=== PATIENT | male | born 1960 | race Two or more races ===

== ENCOUNTER 2017-05-01 12:57 | Emergency (ER) | payer SELFPAY ==
[2017-05-01 13:05] VITALS: BP 141/89; BMI 29.2
[2017-05-01] MEDS ORDERED: NS 1000 ML 1,000 ML IV ONE (13:46)
--- NOTE | 2017-05-01 13:49 | DR.GENAD ---
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 DENIES FEVER OR DYSURIA. NO URI SYMTOMS. - Complaint/Symptoms Chief Complaint Doctors Comments: GENERALIZE BODY CRAMPS. Chief Complaint:: CRAMPING ALL IN HIS BODY. 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 - Nurses notes reviewed Nurses Notes Review: Yes - Source History Provided: Patient, Significant Other - Mode of Arrival Mode of Arrival: Ambulatory - Timing Onset of Chief Complaint: 04/30/17 Came on: Suddenly - Duration Duration: Constant Duration: Days - Severity Severity: Moderate PMH - PMH Past Medical History: No Past Surgical History: No Surgical History: Unknown - Family History History of Family Medical Conditions: No - Social History Does any household member use tobacco: No Alcohol Use: None Do you use any recreational Drugs:: No Lives With: Family, Significant Other Lives Where: Home - infectious screening In the last 2 months have you had wt loss of >10#?: NO Have you had fever, night sweats or hemotysis?: No Have you traveled outside the country in the last 6 months?: No Isolation: Standard ROS - Review of Systems Constitutional: Weakness, Fatigue Eyes: No Symptoms Reported ENTM: No Symptoms Reported. negative: Ear Pain, Nose Discharge, Nose Congestion , Throat Pain Respiratoy: No Symptoms Reported. negative: Productive Cough, Non-Productive Cough, Short of Breath, Wheezing Cardiovascular: No Symptoms Reported. negative: Chest Pain, Edema, Palpitations Gastrointestinal/Abdominal: No Symptoms Reported. negative: Abdominal Pain, Nausea, Vomiting Genitourinary: No Symptoms Reported. negative: Dysuria, Frequency, Hematuria Neurological: Weakness. negative: Headache, Dizziness Musculoskeletal: Muscle Pain Integumentary: No Symptoms Reported Hematologic/Lymphatic: No Symptoms Reported Endocrine: No Symptoms Reported All Other Systems: Reviewed and Negative PE - Vital Signs Vitals: Temperature 98.2 F Pulse Rate 94 Respiratory Rate 20 Blood Pressure 141/89 O2 Sat by Pulse Oximetry 96 - General Limitations: No Limitations General Appearance: Alert - Head Head Exam: Normal Inspection - Eyes Eye exam: Normal Appearance - ENT ENT Exam: Normal External Ear Exam External Ear Exam: Normal External Inspection TM/Canal Exam: Bilateral Normal Nose Exam: Normal Nose Exam Mouth Exam: Normal Inspection Throat Exam: Normal Inspection - Neck Neck Exam: Trachea Midline - Chest Chest Inspection: Symmetric Chest Wall Rise - Respiratory Respiratory Exam: Normal Lung Sounds Bilat Respiratory Exam: Bilateral Clear to Auscultation - Cardiovascular Cardiovascular Exam: Regular Rate, Normal Rhythm, Normal Heart Sounds - Abdominal Exam Abdominal Exam: Normal Bowel Sounds, Soft. negative: Tenderness - Extremities Extremities Exam: Normal Inspection - Back Back Exam: Normal Inspection - Neurologic Neurological Exam: Alert, Oriented X3 - Psychiatric Psychiatric Exam: Normal Affect, Normal Mood - Skin Skin Exam: Normal Color [facility] - Additional Information Additional Information Obtained From: Family - Differential Diagnosis Differential Diagnosis: GENERALIZE MYALGIA, UTI, DEHYDRATION Course - Treatment Treatment: SEE ORDERS. - Education/Counseling Education/Counseling: Patient, Family, Education Educated On: Treatment, Diagnosis, Needs for Follow Up ROR - Labs Reviewed Result Diagrams: 05/01/17 14:00 05/01/17 14:00 Laboratory: WBC 10.4 X10^3/uL (3.6-10.0) H 05/01/17 14:00 RBC 4.91 X10^6/uL (4.7-6.0) 05/01/17 14:00 Hgb 15.0 g/dL (13.5-18.0) 05/01/17 14:00 Hct 42.4 % (42.0-54.0) 05/01/17 14:00 MCV 86.4 fL (80.0-100.0) 05/01/17 14:00 MCH 30.5 pg (27.0-34.0) 05/01/17 14:00 MCHC 35.3 g/dL (33.0-35.0) H 05/01/17 14:00 RDW 13.9 % (11.6-16.5) 05/01/17 14:00 Plt Count 259 X10^3/uL (150.0-450.0) 05/01/17 14:00 MPV 7.5 fL (7.4-11.0) 05/01/17 14:00 Neut % 64.3 % (42.0-75.0) 05/01/17 14:00 Lymph % 26.4 % (21.0-51.0) 05/01/17 14:00 [place] % 7.3 % (0.0-13.0) 05/01/17 14:00 Eos % 1.5 % (0.9-2.9) 05/01/17 14:00 Baso % 0.5 % (0.2-1.0) 05/01/17 14:00 Neut # 6.7 x10^3/uL (2.2-4.8) H 05/01/17 14:00 Lymph # 2.7 X10^3/uL (1.3-2.9) 05/01/17 14:00 [place] # 0.8 x10^3/uL (0.3-0.8) 05/01/17 14:00 Eos # 0.2 x10^3/uL (0.0-0.2) 05/01/17 14:00 Baso # 0.0 X10^3/uL (0.0-0.1) 05/01/17 14:00 Absolute Nucleated RBC 0.0 /100WBC 05/01/17 14:00 Sodium 138 mmol/L (136-145) 05/01/17 14:00 Corrected Sodium TNP 05/01/17 14:00 Potassium 4.1 mmol/L (3.5-5.1) 05/01/17 14:00 Chloride 103 mmol/L (98-107) 05/01/17 14:00 Carbon Dioxide 28.5 mmol/L (21-32) 05/01/17 14:00 BUN 25 mg/dL (7-18) H 05/01/17 14:00 Creatinine 1.27 mg/dL (0.70-1.30) 05/01/17 14:00 Est GFR (MDRD) Af Amer > 60 (>60) 05/01/17 14:00 Est GFR (MDRD) Non-Af > 60 (>60) 05/01/17 14:00 Glucose 100 mg/dL (65-99) H 05/01/17 14:00 Calcium 9.1 mg/dL (8.5-10.1) 05/01/17 14:00 Corrected Calcium TNP 05/01/17 14:00 Total Bilirubin 0.60 mg/dL (0.2-1.0) 05/01/17 14:00 AST 78 Units/L (15-37) H 05/01/17 14:00 ALT 150 Units/L (12-78) H 05/01/17 14:00 Alkaline Phosphatase 94 Units/L (46-116) 05/01/17 14:00 Total Protein 8.3 g/dL (6.4-8.2) H 05/01/17 14:00 Albumin 4.3 g/dL (3.4-5.0) 05/01/17 14:00 Globulin 4.0 g/dL (2.5-4.5) 05/01/17 14:00 Albumin/Globulin Ratio 1.1 Ratio (1.1-2.1) 05/01/17 14:00 Specimen Type Clean catch urine 05/01/17 14:09 Urine Color Dark yellow (YELLOW) 05/01/17 14:09 Urine Appearance Clear (CLEAR) 05/01/17 14:09 Urine pH 5.0 (5.0 - 8.0) 05/01/17 14:09 Ur Specific [place] 1.025 (1.000-1.030) 05/01/17 14:09 Urine Protein 2+ (NEGATIVE) 05/01/17 14:09 Urine Glucose (UA) Negative (NEGATIVE) 05/01/17 14:09 Urine Ketones 1+ (NEGATIVE) 05/01/17 14:09 Urine Occult Blood 1+ (NEGATIVE) 05/01/17 14:09 Urine Nitrite Negative (NEGATIVE) 05/01/17 14:09 Urine Bilirubin Negative (NEGATIVE) 05/01/17 14:09 Urine Urobilinogen 1+ (NORMAL) 05/01/17 14:09 Ur Leukocyte Esterase 1+ (NEGATIVE) 05/01/17 14:09 Urine RBC 3-5 /HPF (NEGATIVE) 05/01/17 14:09 Urine WBC 4-5 /HPF (NEGATIVE) 05/01/17 14:09 Ur Squamous Epith Cells Few /HPF (NEGATIVE) 05/01/17 14:09 Amorphous Sediment Trace /HPF (NEGATIVE) 05/01/17 14:09 Urine Bacteria 1+ /HPF (NEGATIVE) 05/01/17 14:09 Hyaline Casts Few /LPF (NEGATIVE) 05/01/17 14:09 Urine Mucus Moderate /HPF (NEGATIVE) 05/01/17 14:09 Ur Culture Indicated? No/not indicated 05/01/17 14:09 - Diagnosis Discharge Problem: Myalgia, Dehydration Heat cramp Qualifiers: Encounter type: initial encounter Qualified Code(s): T67.2XXA - Heat cramp, initial encounter - Discharge Plan Disposition: HOME, SELF-CARE Condition: Stable Prescriptions: Ibuprofen [MOTRIN TAB 600 MG *] 600 mg PO TID PRN #20 tab PRN Reason: Pain/Inflammation Ranitidine HCl [ZANTAC TAB 150 MG *] 150 mg PO BID #20 tab - Follow ups/Referrals Follow ups/Referrals: NFD,None [Primary Care Provider] - 3 days - Instructions Instructions: Rehydration, Adult, Heat Illness-SportsMed Additional Instructions: RETURN TO ED IF WORSE.
[2017-05-01] MEDS ORDERED: NS 1000 ML 1,000 ML ONE (14:01)
[2017-05-01 14:11] LABS: BASOPHILS % (AUTO) 0.5 % (0.2-1.0); EOSINOPHILS # (AUTO) 0.2 x10^3/uL (0.0-0.2); EOSINOPHILS % (AUTO) 1.5 % (0.9-2.9); HEMATOCRIT 42.4 % (42.0-54.0); LYMPHOCYTES # (AUTO) 2.7 X10^3/uL (1.3-2.9); LYMPHOCYTES % (AUTO) 26.4 % (21.0-51.0); MEAN CORPUSCULAR HEMOGLOBIN 30.5 pg (27.0-34.0); MEAN CORPUSCULAR HGB CONC 35.3 g/dL (33.0-35.0); MEAN CORPUSCULAR VOLUME 86.4 fL (80.0-100.0); MEAN PLATELET VOLUME 7.5 fL (7.4-11.0); MONOCYTES # (AUTO) 0.8 x10^3/uL (0.3-0.8); MONOCYTES % (AUTO) 7.3 % (0.0-13.0); NEUTROPHILS # (AUTO) 6.7 x10^3/uL (2.2-4.8); NEUTROPHILS % (AUTO) 64.3 % (42.0-75.0); PLATELET COUNT 259 X10^3/uL (150.0-450.0); RED BLOOD COUNT 4.91 X10^6/uL (4.7-6.0); RED CELL DISTRIBUTION WIDTH 13.9 % (11.6-16.5); WHITE BLOOD COUNT 10.4 X10^3/uL (3.6-10.0)
[2017-05-01 14:29] LABS: APPEARANCE,URINE CLEAR (CLEAR); BACTERIA,URINE 1+ /HPF (NEGATIVE); BILIRUBIN,URINE NEGATIVE (NEGATIVE); BLOOD/HEMOGLOBIN,URINE 1+ (NEGATIVE); COLOR,URINE DARK YELLOW (YELLOW); GLUCOSE, URINE NEGATIVE (NEGATIVE); KETONES,URINE 1+ (NEGATIVE); LEUKOCYTE ESTERASE ,URINE 1+ (NEGATIVE); NITRITES,URINE NEGATIVE (NEGATIVE); PROTEIN,URINE 2+ (NEGATIVE); SQUAMOUS EPITHELIAL CELL,UR FEW /HPF (NEGATIVE); UROBILINOGEN,URINE 1+ (NORMAL)
[2017-05-01 14:30] LABS: AMORPHOUS SEDIMENT,UR TRACE /HPF (NEGATIVE); HYALINE CASTS, URINE FEW /LPF (NEGATIVE); MUCUS,URINE MODERATE /HPF (NEGATIVE)
[2017-05-01 14:33] LABS: ALANINE AMINOTRANSFERASE 150 Units/L (12-78); ALBUMIN 4.3 g/dL (3.4-5.0); ALKALINE PHOSPHATASE 94 Units/L (46-116); ASPARTATE AMINO TRANSFERASE 78 Units/L (15-37); BLOOD UREA NITROGEN 25 mg/dL (7-18); CALCIUM 9.1 mg/dL (8.5-10.1); CARBON DIOXIDE 28.5 mmol/L (21-32); CHLORIDE 103 mmol/L (98-107); CREATININE 1.27 mg/dL (0.70-1.30); GLUCOSE 100 mg/dL (65-99); SODIUM 138 mmol/L (136-145); TOTAL PROTEIN 8.3 g/dL (6.4-8.2); eGFR BLACK RACES > 60 (>60); eGFR NON BLACK RACES > 60 (>60)
[2017-05-01] MEDS ORDERED: TORADOL 30 MG VIAL IVP ONE (15:33)
[2017-05-01] MEDS ORDERED: ATIVAN INJ 2 MG VIAL IVP ONE (15:39)
[2017-05-01] MEDS ORDERED: ATIVAN INJ 2 MG VIAL ONE (16:09)
[2017-05-01] MEDS ORDERED: TORADOL 30 MG VIAL ONE (16:09)
== END 2017-05-01 16:36 | disposition home or self-care (01) ==
LOC: ER 13:11
DX: E86.0 Dehydration (principal); T67.2XXA Heat cramp, initial encounter; M79.1 Myalgia
CPT/HCPCS: 36415; 80053; 81001; 85025; 96365; 96374; 96375; 99282; 99283; A4222; J1885; J2060

== ENCOUNTER 2017-07-20 08:40 | Observation (INO) | payer SELFPAY ==
[2017-07-20 08:51] VITALS: BMI 27.3
[2017-07-20] MEDS ORDERED: TORADOL 60 MG VIAL IM ONE (09:14)
--- NOTE | 2017-07-20 09:19 | DR.GENAD ---
HPI - PCP Primary Care Physician: none - Complaint/Symptoms Chief Complaint Doctors Comments: Patient is complaining of hurting when he urinates with left side and lower back pain for the past 24 hours with fever last night. States he has been having nocturia but denies hematuria. States the pain is 8 of 10 and the pain is worst when he moves or bends. States he has been doing a lot of lifting in the [place]. He has been having dizziness, frontal headache and cramps in his legs. He denies syncope or any recent trauma. States he has reading glassed but has not gone to a doctor to have his eyes checked. Chief Complaint:: "hurting when i pee,I had a fever lastnight, and my head is hurting." - Nurses notes reviewed Nurses Notes Review: Yes - Source History Provided: Patient - Mode of Arrival Mode of Arrival: Ambulatory - Timing Onset of Chief Complaint: 07/19/17 Came on: Gradually - Duration Duration: Constant How lon Duration: Days - Location Location: left lower back back and lower abdominal pain - Severity Severity: Moderate - Modifying Factors Worsens:: movement Improves:: nothing PMH - PMH Past Medical History: No Past Surgical History: No Surgical History: Unknown - Family History History of Family Medical Conditions: No - Social History Does patient currently use any type of tobacco product: No Have you used tobacco products in the last 12 months: No Type of Tobacco Use: None Does any household member use tobacco: No Alcohol Use: None Do you use any recreational Drugs:: No Lives With: Family Lives Where: Home - infectious screening In the last 2 months have you had wt loss of >10#?: NO Have you had fever, night sweats or hemotysis?: No Have you traveled outside the country in the last 6 months?: No Isolation: Standard ROS - Review of Systems Constitutional: No Symptoms Reported Eyes: No Symptoms Reported, Blurred Vision. negative: See HPI, Eye Pain, Tearing, Discharge, Photophobia, Diplopia, Other ENTM: Nose Discharge, Nose Congestion. negative: No Symptoms Reported, See HPI , Ear Pain, Ear Discharge, Pulling on Ears, Hearing Loss, Nose Pain, Epistaxis, Mouth Pain, Mouth Swelling, Loose Teeth, Drooling, Throat Pain, Throat Swelling , Ear Foreign Body Respiratoy: No Symptoms Reported. negative: See HPI, Productive Cough, Non- Productive Cough, Moist Cough, Dry Cough, Hacking Cough, Barking Cough, Brassy Cough, Orthopnea, Short of Breath, Stridor, Wheezing, Hemoptysis, Other Cardiovascular: No Symptoms Reported. negative: See HPI, Chest Pain, Edema, Palpitations, Syncope, Cyanosis, Skin Mottling, Other Gastrointestinal/Abdominal: No Symptoms Reported, Abdominal Pain. negative: See HPI, Constipation, Diarrhea, Nausea, Vomiting, Food Intolerance, Other Genitourinary: No Symptoms Reported, Dysuria, Frequency, Pain. negative: See HPI, Discharge, Hematuria, Bleeding, Other Neurological: No Symptoms Reported, Headache. negative: See HPI, Anxiety, Depressed, Emotional Problems, Numbness, Paresthesia, Pre-existing Deficit, Seizure, Tingling, Tremors, Weakness, Dizziness, Problems Walking, Speech Problem, Other Musculoskeletal: No Symptoms Reported, Back Pain, Back Integumentary: No Symptoms Reported. negative: See HPI, Change in Color, Change in Hair/Nails, Dryness, Lesions, Lumps, Rash, Itching, Wound, Bruises, Juandice, Other Hematologic/Lymphatic: No Symptoms Reported. negative: See HPI, Anemia, Blood Clots, Easy Bleeding, Easy Bruising, Swollen Glands, Lymphadenopathy, Other Endocrine: No Symptoms Reported Psychiatric: No Symptoms Reported. negative: See HPI, Anxiety, Depression, Hallucinations, Excessive crying, Suicidal, Other PE - Vital Signs Vitals: Temperature 98.4 F Pulse Rate 93 Respiratory Rate 18 Blood Pressure 135/83 O2 Sat by Pulse Oximetry 96 - General Limitations: No Limitations General Appearance: Alert, In Distress (moderate) - Head Head Exam: Normal Inspection, Atraumatic, Normocephalic - Eyes Eye exam: Normal Appearance, PERRL, EOMI - ENT ENT Exam: Normal Exam, Normal Oropharynx, Normal External Ear Exam, Mucous Membranes Moist, TM's Normal Bilaterally External Ear Exam: Normal External Inspection TM/Canal Exam: Bilateral Normal Nose Exam: Normal Nose Exam Mouth Exam: Normal Inspection Throat Exam: Normal Inspection - Neck Neck Exam: Normal Inspection, Full ROM, Trachea Midline. negative: Tenderness, Meningismus, Lymphadenopathy, Thyromegaly, Other - Chest Chest Inspection: Normal Inspection, Symmetric Chest Wall Rise - Respiratory Respiratory Exam: Normal Lung Sounds Bilat Respiratory Exam: Bilateral Clear to Auscultation - Cardiovascular Cardiovascular Exam: Regular Rate, Normal Rhythm, Normal Heart Sounds - Abdominal Exam Abdominal Exam: Normal Inspection, Normal Bowel Sounds, Soft, Tenderness ( suprapubic tenderness), Rebound Abdominal Tenderness: RLQ, LLQ, Suprapubic, Moderate - Extremities Extremities Exam: Normal Inspection, Full ROM, Normal Capillary Refill. negative: Tenderness, Edema, Joint Swelling, Calf Tenderness, Other - Back Back Exam: Normal Inspection, Full ROM, Tenderness, (L) CVA Tenderness, Paraspinal Tenderness. negative: (R) Sciatic Notch Tenderness, (L) Sciatic Notch Tendern, (R) Straight Leg Raise, (L) Straight Leg Raise - Neurologic Neurological Exam: Alert, Oriented X3, CN II-XII Intact, Normal Gait, Reflexes Normal - Psychiatric Psychiatric Exam: Normal Affect, Normal Mood. negative: Depressed, Agitated, Anxious, Flat Affect, Manic, Homicidal Ideation, Suicidal Ideation, Other - Skin Skin Exam: Warm, Dry, Intact, Normal Color. negative: Rash, Cyanosis, Diaphoresis, Erythema, Pallor, Mottled, Other Course - Consultation Called: 13:09 Call Returned: 13:09 (Dr. Smith to admit) - Education/Counseling Education/Counseling: Family Educated On: Treatment, Diagnosis, Needs for Follow Up ROR - Labs Reviewed Laboratory Results Reviewed?: Yes (all labs and x-ray results reviewed and discuussed with patient) Result Diagrams: 07/20/17 09:26 07/20/17 09:26 Laboratory: WBC 16.1 X10^3/uL (3.6-10.0) H 07/20/17 09:26 RBC 4.75 X10^6/uL (4.7-6.0) 07/20/17 09:26 Hgb 14.4 g/dL (13.5-18.0) 07/20/17 09:26 Hct 41.8 % (42.0-54.0) L 07/20/17 09:26 MCV 88.0 fL (80.0-100.0) 07/20/17 09:26 MCH 30.3 pg (27.0-34.0) 07/20/17 09: MCHC 34.5 g/dL (33.0-35.0) 07/20/17 09: RDW 13.5 % (11.6-16.5) 07/20/17 09:26 Plt Count 204 X10^3/uL (150.0-450.0) 07/20/17 09:26 MPV 7.8 fL (7.4-11.0) 07/20/17 09:26 Neut % 82.6 % (42.0-75.0) H 07/20/17 09:26 Lymph % 10.8 % (21.0-51.0) L 07/20/17 09:26 [facility] % 5.5 % (0.0-13.0) 07/20/17 09:26 Eos % 0.9 % (0.9-2.9) 07/20/17 09:26 Baso % 0.2 % (0.2-1.0) 07/20/17 09:26 Neut # 13.3 x10^3/uL (2.2-4.8) H 07/20/17 09:26 Lymph # 1.7 X10^3/uL (1.3-2.9) 07/20/17 09:26 [facility] # 0.9 x10^3/uL (0.3-0.8) H 07/20/17 09:26 Eos # 0.2 x10^3/uL (0.0-0.2) 07/20/17 09:26 Baso # 0.0 X10^3/uL (0.0-0.1) 07/20/17 09:26 Absolute Nucleated RBC 0.0 /100WBC 07/20/17 09:26 Sodium 139 mmol/L (136-145) 07/20/17 09:26 Corrected Sodium 139 mmol/L (136-145) 07/20/17 09:26 Potassium 3.7 mmol/L (3.5-5.1) 07/20/17 09:26 Chloride 103 mmol/L (98-107) 07/20/17 09:26 Carbon Dioxide 27.7 mmol/L (21-32) 07/20/17 09:26 BUN 18 mg/dL (7-18) 07/20/17 09:26 Creatinine 0.89 mg/dL (0.70-1.30) 07/20/17 09:26 Est GFR (MDRD) Af Amer > 60 (>60) 07/20/17 09:26 Est GFR (MDRD) Non-Af > 60 (>60) 07/20/17 09:26 Glucose 114 mg/dL (65-99) H 07/20/17 09:26 Calcium 9.3 mg/dL (8.5-10.1) 07/20/17 09:26 Corrected Calcium TNP 07/20/17 09:26 Total Bilirubin 1.40 mg/dL (0.2-1.0) H 07/20/17 09:26 AST 116 Units/L (15-37) H 07/20/17 09:26 ALT 178 Units/L (12-78) H 07/20/17 09:26 Alkaline Phosphatase 141 Units/L (46-116) H 07/20/17 09:26 Total Protein 8.0 g/dL (6.4-8.2) 07/20/17 09:26 Albumin 4.0 g/dL (3.4-5.0) 07/20/17 09:26 Globulin 4.0 g/dL (2.5-4.5) 07/20/17 09:26 Albumin/Globulin Ratio 1.0 Ratio (1.1-2.1) L 07/20/17 09:26 Amylase 60 Units/L (25-115) 07/20/17 09:26 Lipase 235 Units/L (73-393) 07/20/17 09:26 Specimen Type Clean catch urine 07/20/17 09:09 Urine Color [place] (YELLOW) 07/20/17 09:09 Urine Appearance Cloudy (CLEAR) 07/20/17 09:09 Urine pH 6.0 (5.0 - 8.0) 07/20/17 09:09 Ur Specific [place] 1.020 (1.000-1.030) 07/20/17 09:09 Urine Protein 3+ (NEGATIVE) 07/20/17 09:09 Urine Glucose (UA) Negative (NEGATIVE) 07/20/17 09:09 Urine Ketones Negative (NEGATIVE) 07/20/17 09:09 Urine Occult Blood 5+ (NEGATIVE) 07/20/17 09:09 Urine Nitrite Positive (NEGATIVE) 07/20/17 09:09 Urine Bilirubin Negative (NEGATIVE) 07/20/17 09:09 Urine Urobilinogen 1+ (NORMAL) 07/20/17 09:09 Ur Leukocyte Esterase 3+ (NEGATIVE) 07/20/17 09:09 Urine RBC Tntc /HPF (NEGATIVE) 07/20/17 09:09 Urine WBC Tntc /HPF (NEGATIVE) 07/20/17 09:09 Ur Squamous Epith Cells Few /HPF (NEGATIVE) 07/20/17 09:09 Urine Bacteria 2+ /HPF (NEGATIVE) 07/20/17 09:09 Urine Yeast Few /HPF (NEGATIVE) 07/20/17 09:09 Ur Culture Indicated? Yes/culture set up 07/20/17 09:09 - XRAY XRAY Interpreted by: Radiologist (CT abdomen: Findings involving appendix is retocecal. Nonspecific bilateral perinephric stranding) - Diagnosis Discharge Problem: urinary tract infection r/o pyelonephrit, abdominal pain r/o appendicitis, Abnormal liver enzymes, Diverticulosis of colon - Discharge Plan Disposition: ADMITTED INPATIENT Condition: Stable - Follow ups/Referrals Follow ups/Referrals: NFD,None [Primary Care Provider] - 3 days - Instructions
[2017-07-20] MEDS ORDERED: TORADOL 60 MG VIAL ONE (09:22)
[2017-07-20 09:40] LABS: BILIRUBIN,URINE NEGATIVE (NEGATIVE); BLOOD/HEMOGLOBIN,URINE 5+ (NEGATIVE); GLUCOSE, URINE NEGATIVE (NEGATIVE); KETONES,URINE NEGATIVE (NEGATIVE); LEUKOCYTE ESTERASE ,URINE 3+ (NEGATIVE); NITRITES,URINE POSITIVE (NEGATIVE); PROTEIN,URINE 3+ (NEGATIVE); UROBILINOGEN,URINE 1+ (NORMAL)
[2017-07-20 09:42] LABS: APPEARANCE,URINE CLOUDY (CLEAR); COLOR,URINE AMBER (YELLOW)
[2017-07-20 09:44] LABS: BASOPHILS % (AUTO) 0.2 % (0.2-1.0); EOSINOPHILS # (AUTO) 0.2 x10^3/uL (0.0-0.2); EOSINOPHILS % (AUTO) 0.9 % (0.9-2.9); HEMATOCRIT 41.8 % (42.0-54.0); HEMOGLOBIN 14.4 g/dL (13.5-18.0); LYMPHOCYTES # (AUTO) 1.7 X10^3/uL (1.3-2.9); LYMPHOCYTES % (AUTO) 10.8 % (21.0-51.0); MEAN CORPUSCULAR HEMOGLOBIN 30.3 pg (27.0-34.0); MEAN CORPUSCULAR HGB CONC 34.5 g/dL (33.0-35.0); MEAN PLATELET VOLUME 7.8 fL (7.4-11.0); MONOCYTES # (AUTO) 0.9 x10^3/uL (0.3-0.8); MONOCYTES % (AUTO) 5.5 % (0.0-13.0); NEUTROPHILS # (AUTO) 13.3 x10^3/uL (2.2-4.8); NEUTROPHILS % (AUTO) 82.6 % (42.0-75.0); PLATELET COUNT 204 X10^3/uL (150.0-450.0); RED BLOOD COUNT 4.75 X10^6/uL (4.7-6.0); RED CELL DISTRIBUTION WIDTH 13.5 % (11.6-16.5); WHITE BLOOD COUNT 16.1 X10^3/uL (3.6-10.0)
[2017-07-20 09:46] LABS: BACTERIA,URINE 2+ /HPF (NEGATIVE); RBC,URINE TNTC /HPF (NEGATIVE); SQUAMOUS EPITHELIAL CELL,UR FEW /HPF (NEGATIVE); YEAST,URINE FEW /HPF (NEGATIVE)
[2017-07-20 09:49] LABS: ALANINE AMINOTRANSFERASE 178 Units/L (12-78); ALKALINE PHOSPHATASE 141 Units/L (46-116); AMYLASE 60 Units/L (25-115); ASPARTATE AMINO TRANSFERASE 116 Units/L (15-37); BLOOD UREA NITROGEN 18 mg/dL (7-18); CALCIUM 9.3 mg/dL (8.5-10.1); CARBON DIOXIDE 27.7 mmol/L (21-32); CHLORIDE 103 mmol/L (98-107); COR NA(FOR HYPERGLY) 139 mmol/L (136-145); CREATININE 0.89 mg/dL (0.70-1.30); LIPASE 235 Units/L (73-393); SODIUM 139 mmol/L (136-145); eGFR BLACK RACES > 60 (>60); eGFR NON BLACK RACES > 60 (>60)
[2017-07-20] MEDS ORDERED: ROCEPHIN VIAL 1 GM 1 GM in NS 50 ML IV + SPIKE MINIBAG* 50 ML IV ONE ×2 (09:56→13:13)
[2017-07-20] MEDS ORDERED: NS 1000 ML 1,000 ML IV ONE (09:56)
[2017-07-20] MEDS ORDERED: LEVAQUIN PREMIX IV 500 MG 500 MG/100 ML BAG IV ONE ×3 (09:57→13:11)
[2017-07-20] MEDS ORDERED: NS 1000 ML 1,000 ML ONE (10:07)
[2017-07-20] MEDS ORDERED: NS 50 ML IV 50 ML IV ONE ×2 (10:07→22:01)
[2017-07-20] MEDS ORDERED: ROCEPHIN VIAL 1 GM ONE ×2 (10:08→22:01)
--- NOTE | 2017-07-20 10:16 | CT ---
HISTORY: Fever and right flank pain Study: CT abdomen and pelvis without contrast Comparison: None Technique: Multiple axial, coronal, and sagittal CT images of the abdomen and pelvis were reviewed wi thout contrast. AEC was utilized. Findings: There is a small mesenteric fat containing umbilical hernia. The lung bases are clear. There is no pn eumoperitoneum. No significant free fluid is identified. There is thoracolumbar spondylosis. The aneta d organs are unremarkable in their noncontrast appearance. There is nonspecific bilateral perinephric stranding for which correlation with urinalysis is recommended given the clinical history. There is no nephrolithiasis, ureterolithiasis, or hydronephrosis. There is sigmoid diverticulosis without terence colonic inflammation. The appendix is retrocecal with air noted in its proximal and distal portions w hich typically indicates a normal appearance, but the appendix is mildly dilated measuring 7-8 mm in diameter with the midportions of the appendix containing high-density material representing either ch ronic inspissated barium from previous contrasted imaging versus small appendicolith. It is difficult to discern whether there is significant surrounding inflammation or wall thickening given the adjace nt perinephric stranding, motion artifact through this level of the abdomen, and given the lack of co ntrast. In the setting of fever and leukocytosis, mild early acute appendicitis cannot be entirely ex cluded. Surgical consultation and close clinical correlation and follow-up are recommended. The bladd er is decompressed. IMPRESSION: No definite acute finding within the abdomen or pelvis. However, there are equivocal indeterminate fi ndings involving the appendix which is retrocecal as described in detail above. Nonspecific mild bilateral perinephric stranding. Correlate with urinalysis. Uncomplicated diverticulosis. Reported By:
[2017-07-20] MEDS ORDERED: DILAUDID INJ IVP PRN (13:11)
[2017-07-20] MEDS ORDERED: PEPCID 20 MG IV PREMIX* 20 MG/50 ML BAG IV PRN (13:11)
[2017-07-20] MEDS ORDERED: TYLENOL 325 MG TAB PO PRN (13:11)
[2017-07-20] MEDS ORDERED: ZOFRAN INJ 4 MG VIAL IVP PRN (13:11)
[2017-07-20] MEDS: LEVAQUIN PREMIX IV 500 MG 500 MG/100 ML BAG IV SCH (21:38)
[2017-07-20] MEDS: NS 1000 ML 1,000 ML IV SCH (21:39)
[2017-07-20] MEDS: ROCEPHIN VIAL 1 GM 1 GM in NS 50 ML IV + SPIKE MINIBAG* 50 ML IV SCH (22:43)
[2017-07-20] MEDS: TORADOL 30 MG VIAL IVP PRN (22:43)
[2017-07-21 05:14] LABS: BASOPHILS # (AUTO) 0.1 X10^3/uL (0.0-0.1); BASOPHILS % (AUTO) 0.5 % (0.2-1.0); EOSINOPHILS # (AUTO) 0.4 x10^3/uL (0.0-0.2); EOSINOPHILS % (AUTO) 2.6 % (0.9-2.9); HEMOGLOBIN 12.8 g/dL (13.5-18.0); LYMPHOCYTES # (AUTO) 1.9 X10^3/uL (1.3-2.9); LYMPHOCYTES % (AUTO) 14.1 % (21.0-51.0); MEAN CORPUSCULAR HEMOGLOBIN 30.6 pg (27.0-34.0); MEAN CORPUSCULAR HGB CONC 34.5 g/dL (33.0-35.0); MEAN CORPUSCULAR VOLUME 88.7 fL (80.0-100.0); MONOCYTES # (AUTO) 0.9 x10^3/uL (0.3-0.8); MONOCYTES % (AUTO) 6.5 % (0.0-13.0); NEUTROPHILS # (AUTO) 10.5 x10^3/uL (2.2-4.8); NEUTROPHILS % (AUTO) 76.3 % (42.0-75.0); PLATELET COUNT 174 X10^3/uL (150.0-450.0); RED BLOOD COUNT 4.18 X10^6/uL (4.7-6.0); RED CELL DISTRIBUTION WIDTH 13.3 % (11.6-16.5); WHITE BLOOD COUNT 13.7 X10^3/uL (3.6-10.0)
[2017-07-21 05:26] LABS: BLOOD UREA NITROGEN 14 mg/dL (7-18); CALCIUM 8.4 mg/dL (8.5-10.1); CARBON DIOXIDE 25.7 mmol/L (21-32); CHLORIDE 105 mmol/L (98-107); CREATININE 0.86 mg/dL (0.70-1.30); SODIUM 139 mmol/L (136-145); eGFR BLACK RACES > 60 (>60); eGFR NON BLACK RACES > 60 (>60)
[2017-07-21] MEDS: NS 1000 ML 1,000 ML IV SCH (06:33)
--- NOTE | 2017-07-21 10:39 | DR.H&P ---
H&P - History & Physical for Day of: H&P Date: 07/20/17 - Chief Complaint Chief Complaint: dysuria, abdominal pain - Allergies Allergies/Adverse Reactions: Allergies Allergy/AdvReac Type Severity Reaction Status Date / Time No Known Drug Allergies Allergy Verified 05/01/17 13:05 - History of Present Illness History of Present Illness: is a 57 year old male who presented to the emergency room with complaints of painful urination, fever, and back pain, and abdominal pain. Patient reports that symptoms started approximately 24 hours prior to arrival to the ER. He describes abdominal pain as diffuse, and back pain to the lower back around to the left flank. He denies hematuria. Patient reports that pain is 8/10 and is worse when he moves or bends. Associated symptoms are headache, dizziness, nasal congestion and discharge, urinary frequency, and cramps to bilateral legs. He denies syncope or recent trauma. On arrival to the emergency room, vital signs were 98.4-93-18- 96%-135/83. Abnormal lab values include the following: wbc 16.1, hct 41.8, glucose 114, total bili 1.40, ast 116, alt 178, alk phos 141, a/g ratio 1.0. Urinalysis reported wbc TNTC, rbc TNTC, leukocytes 3+, bacteria 2+, nitrites positive, occult blood 5+, protein 3+. A CT of the abdomen/pelvis was obtained. Abnormal lab values include the following: no definite acute finding within the abdomen or pelvis. However, there are equivocal indeterminate findings involving the appendix which is retrocecal. Non specific mild bilateral perinephric stranding. Uncomplicated diverticulosis. Patient was given rocephin and levaquin in the ER and a normal saline bolus. He was also given toradol 60mg im x 1 dose in the ER with no improvement in pain noted. We planned to admit the patient for further evaluation and treatment of UTI and abdominal pain. We will consult with , general surgery to evaluate for acute appendicitis. We plan to follow up with am labs and continue to monitor patient. - Past Surgical History Surgical History: Unknown - Social History Does patient currently use any type of tobacco product: No Have you used tobacco products in the last 12 months: No Type of Tobacco Use: None Does any household member use tobacco: No Alcohol Use: None Drug Use: None - Medications Home Medications: NK [NK] 07/20/17 [History Confirmed 07/20/17] - Physical Exam Vital Signs: Temperature 98.2 F Pulse Rate [Left Brachial] 71 Pulse Rate 93 Respiratory Rate 18 Blood Pressure [Left Arm] 126/73 Blood Pressure 135/83 O2 Sat by Pulse Oximetry 97
[2017-07-21] MEDS ORDERED: FENTANYL INJ 250 mcg ONE (11:29)
[2017-07-21] MEDS ORDERED: XYLOCAINE 1% and EPINEPHRINE 1:100,000 ONE (12:10)
[2017-07-21] MEDS ORDERED: MARCAINE 0.25% INJ ONE (12:10)
[2017-07-21] MEDS: LR 1000 ML IV 1,000 ML IV ONE ×2 (12:18→12:45)
[2017-07-21] MEDS ORDERED: NS 100 ML IV 100 ML IV ONE (12:51)
[2017-07-21] MEDS ORDERED: ANCEF VIAL 1 GM ONE (12:51)
[2017-07-21] MEDS ORDERED: NS IRRIGATION 3000 ML 3,000 ML IR ONE (12:53)
[2017-07-21] MEDS ORDERED: PERCOCET TAB 5/325 MG PO PRN (13:37)
[2017-07-21] MEDS ORDERED: DILAUDID INJ IVP PRN (13:42)
[2017-07-21] MEDS ORDERED: BENADRYL INJ 50 MG VIAL IVP PRN (13:42)
[2017-07-21] MEDS ORDERED: PHENERGAN INJ 25 MG IVP PRN (13:42)
[2017-07-21] MEDS ORDERED: ZOFRAN INJ 4 MG VIAL IVP PRN (13:42)
--- NOTE | 2017-07-21 13:47 | OR.GENERIC ---
Post-Op Note Generic - Post-Op Note Operative Report: Date of Operation: July 21, 2017 Pre-Operative Diagnosis: 1. Subacute appendicitis. 2. Appendicolith. 3. Umbilical hernia. Post-Operative Diagnosis: 1. Subacute appendicitis. 2. Appendicolith. 3. Umbilical hernia. Procedure: 1. Laparoscopic appendectomy. 2. Primary repair umbilical hernia. Surgeon: Amish Everett MD. Bridge Construction Inspector: Luis Parker CRNA. Specimen: Appendix. Estimated blood loss: 20 mL. Complications: None. Summary: The patient is a 57 year old male who presented with abdominal pain. A CT of the abdomen and pelvis demonstrated mild dilation of the appendix, an appendicolith, as well as perinephritic stranding. Due to the retrocecal location of the appendix, the appendix was in close proximity to the right kidney. Therefore, the etiology of inflammation could not be determined and symptoms of appendicitis possibly masked. The patient was offered appendectomy. The risk and benefits of the procedure including difficulty with anesthesia, bleeding, infection, conversion to open procedure, hernia formation , DVT, as well as PE were discussed with the patient. The patient understood these risks and requested the procedure. On July 21, 2017, the patient was brought to the operative theatre. A time out was performed verifying the patient and procedure. The patient received Ancef for pre-operative antibiosis. After satisfactory induction of general endotracheal anesthesia, the abdomen was prepped with Chloraprep and draped in the usual sterile fashion. The skin and subcutaneous tissue inferior at the umbilicus was anesthetized using local anesthetic. The skin was incised sharply. A 12 mm trocar was placed though the incision and into the peritoneal cavity using the Ann technique through the fascial defect. Carbon dioxide was infiltrated through this trocar to obtain a pneumoperitoneum of 15 mm Hg. A camera was placed through this trocar and swept in all directions. No injury was seen from entering the peritoneal cavity. A site was selected in the right upper quadrant for our 2nd trocar. The skin and fascia was anesthetized using local anesthetic. The skin was incised sharply. A 5 mm trocar was placed into the peritoneal cavity under direct visualization. An additional 5 mm trocar was placed in the left lower quadrant in a similar fashion. The cecum was elevated and rotated medially. The appendix was firm on palpation. The appendix was elevated and a window made in the mesoappendix. The appendix was divided at the cecum using a KORIN stapler with a tissue load. The mesoappendix was divided using a KORIN stapler with vascular loads x 2. The appendix was placed in an endobag and removed through the umbilical trocar site. Arterial bleeding was noted from the mesoappendix staple line superiorly. This was controlled with a 5 mm clip. The staple lines were irrigated and no persistent bleeding noted. All irrigation fluid was removed. The 5 mm trocars were removed under direct visualization and no bleeding seen. The umbilical trocar was removed and insufflation evacuated. The fascial defect was approximately 1.5 cm. The fascia at the umbilicus was re- approximated using a 0-Vicryl placed in a [id number] configuration. The skin edges at all incisions were re-approximated using inverted, interrupted 4- 0 Monocryl sutures. Mastisol and Steri-strips were placed. Sterile dressings were placed. The patient was awakened and taken to the recovery room in stable condition. There were no complications. All counts were correct.
[2017-07-21] MEDS: LEVAQUIN PREMIX IV 500 MG 500 MG/100 ML BAG IV SCH (14:18)
[2017-07-21] MEDS ORDERED: DIPRIVAN VIAL ONE (15:46)
[2017-07-21] MEDS ORDERED: SUPRANE IN ONE (15:46)
[2017-07-21] MEDS ORDERED: ZOFRAN INJ 4 MG VIAL ONE (15:46)
[2017-07-21] MEDS ORDERED: QUELICIN (OR ANECTINE) ONE (15:46)
[2017-07-21] MEDS ORDERED: XYLOCAINE 2 % (PLAIN) ONE (15:46)
[2017-07-21] MEDS ORDERED: ROBINUL ONE (15:46)
[2017-07-21] MEDS ORDERED: NEOSTIGMINE INJ ONE (15:46)
[2017-07-21] MEDS ORDERED: NORCURON INJ 10 MG VIAL ONE (15:46)
[2017-07-21] MEDS: ROCEPHIN VIAL 1 GM 1 GM in NS 50 ML IV + SPIKE MINIBAG* 50 ML IV SCH (16:31)
[2017-07-21] MEDS: TORADOL 30 MG VIAL IVP PRN (16:38)
[2017-07-22] MEDS: NS 1000 ML 1,000 ML IV SCH ×3 (04:52→15:34)
[2017-07-22 05:08] LABS: ALANINE AMINOTRANSFERASE 108 Units/L (12-78); ALBUMIN 2.7 g/dL (3.4-5.0); ALKALINE PHOSPHATASE 133 Units/L (46-116); ASPARTATE AMINO TRANSFERASE 52 Units/L (15-37); BLOOD UREA NITROGEN 14 mg/dL (7-18); CALCIUM 8.2 mg/dL (8.5-10.1); CARBON DIOXIDE 26.1 mmol/L (21-32); CHLORIDE 106 mmol/L (98-107); COR CA(FOR HYPOALB) 9.2 mg/dL (8.5-10.1); COR NA(FOR HYPERGLY) 139 mmol/L (136-145); CREATININE 0.88 mg/dL (0.70-1.30); SODIUM 139 mmol/L (136-145); TOTAL PROTEIN 6.3 g/dL (6.4-8.2); eGFR BLACK RACES > 60 (>60); eGFR NON BLACK RACES > 60 (>60)
[2017-07-22] MEDS: TORADOL 30 MG VIAL IVP PRN (05:14)
[2017-07-22 05:26] LABS: BASOPHILS % (AUTO) 0.3 % (0.2-1.0); EOSINOPHILS # (AUTO) 0.4 x10^3/uL (0.0-0.2); EOSINOPHILS % (AUTO) 3.3 % (0.9-2.9); HEMOGLOBIN 12.1 g/dL (13.5-18.0); LYMPHOCYTES # (AUTO) 2.3 X10^3/uL (1.3-2.9); MEAN CORPUSCULAR HEMOGLOBIN 30.6 pg (27.0-34.0); MEAN CORPUSCULAR HGB CONC 34.7 g/dL (33.0-35.0); MEAN CORPUSCULAR VOLUME 88.1 fL (80.0-100.0); MEAN PLATELET VOLUME 8.3 fL (7.4-11.0); MONOCYTES # (AUTO) 0.7 x10^3/uL (0.3-0.8); MONOCYTES % (AUTO) 6.8 % (0.0-13.0); NEUTROPHILS # (AUTO) 7.3 x10^3/uL (2.2-4.8); NEUTROPHILS % (AUTO) 68.6 % (42.0-75.0); PLATELET COUNT 194 X10^3/uL (150.0-450.0); RED BLOOD COUNT 3.97 X10^6/uL (4.7-6.0); RED CELL DISTRIBUTION WIDTH 13.7 % (11.6-16.5); WHITE BLOOD COUNT 10.7 X10^3/uL (3.6-10.0)
[2017-07-22] MEDS: LEVAQUIN PREMIX IV 500 MG 500 MG/100 ML BAG IV SCH (09:20)
[2017-07-22] MEDS ORDERED: NS 50 ML IV 50 ML IV ONE (10:32)
[2017-07-22] MEDS ORDERED: ROCEPHIN VIAL 1 GM ONE (10:32)
[2017-07-22] MEDS: ROCEPHIN VIAL 1 GM 1 GM in NS 50 ML IV + SPIKE MINIBAG* 50 ML IV SCH (11:09)
[2017-07-22] MEDS ORDERED: FLUVIRIN IM ONE (14:44)
[2017-07-22 18:31] VITALS: BP 160/78
[2017-07-23] MEDS ORDERED: ROCEPHIN 1 GM IV PREMIX 1 GM/50 ML IV.SOLN. IV SCH (09:00)
== END 2017-07-22 17:50 | disposition home or self-care (01) ==
LOC: ER 08:54 → MED/SURG 13:14
PROVIDERS: ADMIT Internal Medicine; ATTEND Internal Medicine
PROC: 0WQF4ZZ Repair Abdominal Wall, Percutaneous Endoscopic Approach (ICD-10-PCS; 2017-07-21)
PROC: 0DTJ4ZZ Resection of Appendix, Percutaneous Endoscopic Approach (ICD-10-PCS; principal; 2017-07-21 11:30)
DX: N39.0 Urinary tract infection, site not specified (principal); R10.84 Generalized abdominal pain; R74.8 Abnormal levels of other serum enzymes; K57.30 Diverticulosis of large intestine without perforation or abscess without bleeding; K36 Other appendicitis; K38.1 Appendicular concretions; K42.9 Umbilical hernia without obstruction or gangrene; D72.828 Other elevated white blood cell count
CPT/HCPCS: 36415; 74176; 80048; 80053; 81001; 82150; 83690; 85025; 87086; 87088; 87186; 90686; 96365; 96372; 96374; 96375; 99284; A4216; A4222; S0020; G0378; J0330; J0690; J0696; J1885; J1956; J2001; J2405; J2710; J3010; J3490; J7120